=== PATIENT | male | born 1950 | race African-American/Black ===

== ENCOUNTER 2021-04-20 22:19 | Emergency (ER) | payer MEDICARE, OTHER ==
[~2021-04-20] VITALS: Ht 188 cm; Wt 98.4 kg
[2021-04-20] MEDS ORDERED: CLONIDINE HCL 0.2 MG TABLET PO ONE (23:00)
--- NOTE | 2021-04-20 23:05 | NUR ---
Patient does not wish to proceed with medical care recommended by Dr. Lynch. Patient given information related to possible complications, up to and including , which could occur as a result of leaving the hospital at this time. Patient verbalizes understanding of risks involved due to leaving against medical advice. Patient has signed AMA form.
[2021-04-20 23:10] VITALS: BP 140/89
== END 2021-04-20 23:10 | disposition left against medical advice (07) ==
LOC: ER 22:25
DX: Z00.8 Encounter for other general examination (principal); Z59.00 Homelessness unspecified; Z53.29 Procedure and treatment not carried out because of patient's decision for other reasons
CPT/HCPCS: 93005; A4663

== ENCOUNTER 2024-02-20 16:49 | Inpatient (IN) | payer BC, MEDICAID ==
[~2024-02-20] VITALS: Ht 188 cm; Wt 105.3 kg
[2024-02-20] MEDS: FUROSEMIDE 20 MG/2 ML VIAL IVP ONE (17:15)
[2024-02-20] MEDS: NITROGLYCERIN OINT 1 GM PACKET TP ONE (17:15)
[2024-02-20 17:29] LABS: ABG BASE EXCESS 0.1 mmol/L (-2.0-3.0); ABG PCO2 67.7 mmHg (35.0-48.0); ABG PO2 387.3 mmHg (83.0-108.0); ABG SITE LEFT RADIAL; ABG TOTAL HEMOGLOBIN 13.6 G/dL (13.5-17.5); AaDO2 99.7 mmHg; COHb 2.8 % (0.5-1.5); MetHb 0.6 % (0.0-1.5); O2Hb 96.3 % (94.0-98.0)
[2024-02-20 17:49] LABS: BASOPHILS % (AUTO) 0.8 % (0.0-2.0); EOSINOPHILS % (AUTO) 0.8 % (0.0-7.0); HEMOGLOBIN 11.7 g/dL (12.5-16.3); LYMPHOCYTES # (AUTO) 0.7 K/uL (0.8-4.8); LYMPHOCYTES % (AUTO) 14.5 % (20.5-51.5); MEAN CORPUSCULAR HEMOGLOBIN 28.5 uug (23.8-33.4); MEAN CORPUSCULAR HGB CONC 31 g/dL (32.5-36.3); MEAN CORPUSCULAR VOLUME 92.5 fL (73.0-96.2); MONOCYTES # (AUTO) 0.6 K/uL (0.1-1.30); MONOCYTES % (AUTO) 12.9 % (0.0-11.0); NEUTROPHILS # (AUTO) 3.4 K/uL (1.8-8.9); PLATELET COUNT (AUTO) 173 K/uL (152-348); RED BLOOD CELL COUNT(AUTO) 4.11 MIL/uL (4.06-5.63); RED CELL DISTRIBUTION WIDTH 17.4 % (12.1-16.2); WHITE BLOOD COUNT (AUTO) 4.7 K/uL (3.6-10.2)
[2024-02-20] MEDS ORDERED: FUROSEMIDE 40 MG/4 ML VIAL ONE (17:49)
[2024-02-20] MEDS ORDERED: NITROGLYCERIN OINT 1 GM PACKET TP ONE (17:49)
[2024-02-20 17:51] LABS: DIFFERENTIAL COMMENT 1
[2024-02-20 17:55] LABS: CALCIUM 7.5 mg/dL (8.5-10.1); CARBON DIOXIDE 28 mmol/L (21-32); CHLORIDE 113 mmol/L (98-107); CREATININE 1.1 mg/dL (0.6-1.3); GLUCOSE 121 mg/dL (74-106); POTASSIUM 4.8 mmol/L (3.5-5.1); SODIUM SERUM 147 mmol/L (136-145); UREA NITROGEN, BLOOD 20 mg/dL (7-18)
[2024-02-20 18:09] LABS: ALANINE AMINOTRANSFERASE 28 U/L (16-63); ALBUMIN 2.4 g/dL (3.4-5.0); ALKALINE PHOSPHATASE 62 U/L (50-136); ASPARTATE AMINOTRANSFERASE 41 U/L (15-37); BILIRUBIN,DIRECT 0.4 mg/dL (0.0-0.2); BILIRUBIN,TOTAL 0.7 mg/dL (0.2-1.0); NT-PRO BNP 30662 pg/mL (0-125); TOTAL PROTEIN, SERUM 7.2 g/dL (6.4-8.2)
[2024-02-20] MEDS ORDERED: METOPROLOL TARTRATE 5 MG/5 ML VIAL IVP ONE (21:28)
[2024-02-20] MEDS ORDERED: TEMAZEPAM 15 MG CAPSULE PO PRN (21:30)
[2024-02-20] MEDS ORDERED: HYDROCODONE/APAP 5-325MG TABLET PO PRN (21:30)
[2024-02-20] MEDS ORDERED: ONDANSETRON 4 MG/2 ML VIAL IV PRN (21:30)
[2024-02-20] MEDS: METOPROLOL TARTRATE 5 MG/5 ML VIAL IVP ONE (21:33)
[2024-02-21] MEDS ORDERED: AMIODARONE HCL 150 MG/3 ML VIAL IV ONE ×2 (01:06→04:32)
[2024-02-21] MEDS ORDERED: ENOXAPARIN SODIUM 100 MG/ML DISP.SYRIN SQ ONE (01:11)
[2024-02-21] MEDS ORDERED: METOPROLOL TARTRATE 50 MG TABLET ONE (01:12)
[2024-02-21] MEDS: ENOXAPARIN SODIUM 100 MG/ML DISP.SYRIN SQ SCH (01:20)
[2024-02-21] MEDS: METOPROLOL TARTRATE 50 MG TABLET PO SCH ×2 (01:22→08:35)
[2024-02-21] MEDS: AMIODARONE HCL IV 150 MG in IV DEXTROSE 5% 100 ML IV ONE (01:22)
[2024-02-21] MEDS: AMIODARONE HCL IV 900 MG in IV DEXTROSE 5% 500 ML IV PRN (04:30)
[2024-02-21] MEDS: PANTOPRAZOLE SODIUM 40 MG TABLET.DR PO SCH (06:25)
[2024-02-21 07:08] VITALS: BP 144/101; TEMP 98.4; O2SAT 70
[2024-02-21 07:49] VITALS: BP 118/92; TEMP 98.4; O2SAT 100
[2024-02-21] MEDS: FUROSEMIDE 40 MG/4 ML VIAL IV SCH (08:34)
[2024-02-21] MEDS ORDERED: FUROSEMIDE 40 MG/4 ML VIAL IV SCH (09:00)
[2024-02-21] MEDS: METOPROLOL TARTRATE 50 MG TABLET ONE (09:13)
[2024-02-21] MEDS: ATENOLOL 50 MG TABLET ONE (09:13)
[2024-02-21 10:29] LABS: BASOPHILS % (AUTO) 0.9 % (0.0-2.0); EOSINOPHILS # (AUTO) 0.1 K/uL (0.0-0.7); EOSINOPHILS % (AUTO) 1.7 % (0.0-7.0); HEMATOCRIT 42.2 % (36.7-47.1); LYMPHOCYTES # (AUTO) 0.8 K/uL (0.8-4.8); LYMPHOCYTES % (AUTO) 22.6 % (20.5-51.5); MEAN CORPUSCULAR HGB CONC 31 g/dL (32.5-36.3); MEAN CORPUSCULAR VOLUME 93.8 fL (73.0-96.2); MONOCYTES # (AUTO) 0.4 K/uL (0.1-1.30); MONOCYTES % (AUTO) 9.7 % (0.0-11.0); NEUTROPHILS # (AUTO) 2.4 K/uL (1.8-8.9); NEUTROPHILS % (AUTO) 65.1 % (38.5-71.5); PLATELET COUNT (AUTO) 176 K/uL (152-348); RED BLOOD CELL COUNT(AUTO) 4.49 MIL/uL (4.06-5.63); RED CELL DISTRIBUTION WIDTH 17.6 % (12.1-16.2); WHITE BLOOD COUNT (AUTO) 3.7 K/uL (3.6-10.2)
[2024-02-21 10:32] LABS: DIFFERENTIAL COMMENT 1
[2024-02-21 10:50] LABS: THYROID STIMULATING HORMONE 18.877 mIU/mL (0.358-3.740)
[2024-02-21 11:16] LABS: IRON, SERUM 22 ug/dL (50-175)
[2024-02-21 11:23] LABS: ALANINE AMINOTRANSFERASE 34 U/L (16-63); ALBUMIN 2.7 g/dL (3.4-5.0); ALKALINE PHOSPHATASE 74 U/L (50-136); ASPARTATE AMINOTRANSFERASE 45 U/L (15-37); BILIRUBIN,TOTAL 0.8 mg/dL (0.2-1.0); CALCIUM 7.9 mg/dL (8.5-10.1); CARBON DIOXIDE 34 mmol/L (21-32); CHLORIDE 111 mmol/L (98-107); CREATININE 1.3 mg/dL (0.6-1.3); GLUCOSE 117 mg/dL (74-106); MAGNESIUM 1.7 mg/dL (1.8-2.4); NT-PRO BNP 23209 pg/mL (0-125); PHOSPHOROUS 3.4 mg/dL (2.5-4.9); POTASSIUM 5.1 mmol/L (3.5-5.1); SODIUM SERUM 150 mmol/L (136-145); TOTAL PROTEIN, SERUM 8.2 g/dL (6.4-8.2); UREA NITROGEN, BLOOD 21 mg/dL (7-18)
[2024-02-21 11:42] VITALS: BP_SYST 137; BP_SYST 144; BP_DIAS 108; BP_DIAS 81; TEMP 97.9; TEMP 98; O2SAT 100
[2024-02-21 11:46] LABS: CHOLESTEROL 100 mg/dL (<200); HDL CHOLESTEROL 42 mg/dL (40-60); TRIGLYCERIDES 45 MG/DL (30-150)
[2024-02-21] MEDS: MAGNESIUM SULFATE/D5W 100 ML IV SCH (14:48)
[2024-02-21] MEDS: DOCUSATE SODIUM 100 MG CAPSULE PO SCH (20:54)
[2024-02-21] MEDS ORDERED: DOCUSATE SODIUM 250 MG CAPSULE PO SCH (21:00)
[2024-02-22] VITALS (9 sets, daily range): BP systolic 91–113; BP diastolic 51–66; TEMP 97.6–100.1; O2SAT 90–100
[2024-02-22] MEDS: APIXABAN 5 MG TABLET PO SCH (10:17)
[2024-02-22 15:45] LABS: BASOPHILS % (AUTO) 0.6 % (0.0-2.0); EOSINOPHILS # (AUTO) 0.1 K/uL (0.0-0.7); HEMATOCRIT 35.3 % (36.7-47.1); HEMOGLOBIN 10.5 g/dL (12.5-16.3); LYMPHOCYTES # (AUTO) 0.6 K/uL (0.8-4.8); LYMPHOCYTES % (AUTO) 11.5 % (20.5-51.5); MEAN CORPUSCULAR HEMOGLOBIN 28.1 uug (23.8-33.4); MEAN CORPUSCULAR HGB CONC 30 g/dL (32.5-36.3); MEAN CORPUSCULAR VOLUME 94.9 fL (73.0-96.2); MONOCYTES # (AUTO) 0.6 K/uL (0.1-1.30); MONOCYTES % (AUTO) 10.6 % (0.0-11.0); NEUTROPHILS # (AUTO) 4.2 K/uL (1.8-8.9); NEUTROPHILS % (AUTO) 76.3 % (38.5-71.5); PLATELET COUNT (AUTO) 156 K/uL (152-348); RED BLOOD CELL COUNT(AUTO) 3.73 MIL/uL (4.06-5.63); WHITE BLOOD COUNT (AUTO) 5.5 K/uL (3.6-10.2)
[2024-02-22 15:48] LABS: DIFFERENTIAL COMMENT 1
[2024-02-22 16:01] LABS: CALCIUM 7.3 mg/dL (8.5-10.1); CARBON DIOXIDE 34 mmol/L (21-32); CHLORIDE 108 mmol/L (98-107); CREATININE 1.2 mg/dL (0.6-1.3); GLUCOSE 100 mg/dL (74-106); MAGNESIUM 1.8 mg/dL (1.8-2.4); PHOSPHOROUS 2.6 mg/dL (2.5-4.9); SODIUM SERUM 145 mmol/L (136-145); UREA NITROGEN, BLOOD 24 mg/dL (7-18)
[2024-02-22] MEDS: ACETAMINOPHEN 325 MG TABLET PO PRN (20:56)
[2024-02-23] VITALS: BP 95/58; TEMP 98.7; O2SAT 94
[2024-02-23 00:16] VITALS: O2SAT 93
[2024-02-23 04:00] VITALS: BP 97/59; TEMP 99; O2SAT 96
[2024-02-23 08:00] VITALS: BP 106/65; TEMP 98.3
[2024-02-23] MEDS: BUMETANIDE 1 MG TABLET PO SCH (09:30)
[2024-02-23] MEDS: SPIRONOLACTONE 25 MG TABLET PO SCH (09:37)
[2024-02-23] MEDS ORDERED: BUME1TAB8 PO (11:35)
[2024-02-23] MEDS ORDERED: SPIR25TA PO (11:35)
[2024-02-23] MEDS ORDERED: APIX5TAB PO (11:35)
[2024-02-23] MEDS ORDERED: METO50TA16 PO (11:35)
[2024-02-23 16:00] VITALS: BP 105/66; TEMP 98.4; O2SAT 95
== END 2024-02-23 17:00 | disposition home or self-care (01) | DRG 291 ==
LOC: ER 17:06 → TELE-TD3 20:00 → TELE3 02-21 09:28
PROVIDERS: ADMIT Internal Medicine; ATTEND Internal Medicine
PROC: 5A09357 Assistance with Respiratory Ventilation, Less than 24 Consecutive Hours, Continuous Positive Airway Pressure (ICD-10-PCS; principal; 2024-02-20)
PROC: 05HC33Z Insertion of Infusion Device into Left Basilic Vein, Percutaneous Approach (ICD-10-PCS; 2024-02-21)
DX: I13.0 Hypertensive heart and chronic kidney disease with heart failure and stage 1 through stage 4 chronic kidney disease, or unspecified chronic kidney disease (principal); I50.23 Acute on chronic systolic (congestive) heart failure; J96.01 Acute respiratory failure with hypoxia; I48.20 Chronic atrial fibrillation, unspecified; E87.0 Hyperosmolality and hypernatremia; J98.11 Atelectasis; N17.9 Acute kidney failure, unspecified; I42.0 Dilated cardiomyopathy; Z91.199 Patient's noncompliance with other medical treatment and regimen due to unspecified reason; R31.9 Hematuria, unspecified; T83.021A Displacement of indwelling urethral catheter, initial encounter; Y73.8 Miscellaneous gastroenterology and urology devices associated with adverse incidents, not elsewhere classified; Y92.230 Patient room in hospital as the place of occurrence of the external cause; R94.6 Abnormal results of thyroid function studies; N18.9 Chronic kidney disease, unspecified; Z53.20 Procedure and treatment not carried out because of patient's decision for unspecified reasons; Z79.01 Long term (current) use of anticoagulants; Z79.899 Other long term (current) drug therapy; Z87.891 Personal history of nicotine dependence; Z88.0 Allergy status to penicillin; E11.22 Type 2 diabetes mellitus with diabetic chronic kidney disease
CPT/HCPCS: 36415; 36600; 71045; 82803; 83550; 83735; 84100; 84443; 84481; 84484; 85025; 85730; 94660; A4663; A6213; G0378; J0282; J1650; J1940; J3475; J3490; J7060